=== PATIENT | male | born 1995 | race Two or more races ===

== ENCOUNTER 2025-02-01 01:32 | Emergency (ER) | payer MEDICAID, OTHER ==
[~2025-02-01] VITALS: Ht 170.2 cm; Wt 68.0 kg
[2025-02-01] MEDS ORDERED: ONDANSETRON 4 MG TAB.RAPDIS ONE (01:55)
[2025-02-01] MEDS: ONDANSETRON 4 MG TAB.RAPDIS PO ONE (01:58)
[2025-02-01] MEDS ORDERED: ONDA4TAB5 PO (02:10)
[2025-02-01] MEDS ORDERED: POLY17PO4 PO (02:10)
[2025-02-01] MEDS ORDERED: MAGN296S72 PO (02:10)
[2025-02-01 02:31] LABS: PLATELET COUNT (AUTO) 195 K/uL (150-450); RED BLOOD CELL COUNT(AUTO) 4.88 MIL/uL (4.5-6.0); RED CELL DISTRIBUTION WIDTH 13.2 % (11.5-15.0); WHITE BLOOD COUNT (AUTO) 13.6 K/uL (4.3-11.0)
[2025-02-01 02:39] LABS: CALCIUM, SERUM 8.7 mg/dL (8.5-10.1); CREATININE 0.9 mg/dL (0.6-1.3); SODIUM SERUM 137 mmol/L (136-145); UREA NITROGEN, BLOOD 15 mg/dL (7-18)
[2025-02-01 02:45] LABS: ASPARTATE AMINOTRANSFERASE 15 U/L (15-37); TOTAL PROTEIN, SERUM 6.8 g/dL (6.4-8.2)
[2025-02-01 03:10] VITALS: BP 127/58; TEMP 99.6; O2SAT 95
== END 2025-02-01 03:10 | disposition home or self-care (01) ==
LOC: ER 01:34
DX: K59.00 Constipation, unspecified (principal); Z88.6 Allergy status to analgesic agent; Z60.2 Problems related to living alone; Z79.899 Other long term (current) drug therapy
CPT/HCPCS: 99284; 74018; 85025; 83690; 83735; 36415; 80053; 86140; Q0162